=== PATIENT | female | born 1955 ===

== ENCOUNTER → 2023-05-31 | Outpatient (CLI) | payer MEDICARE ==
[~2023-05-31] MED LIST: ESTR1 PO; HYDACE5 PO; IBUP800 PO
== END | disposition home or self-care (01) ==
LOC: LAB 08:30 → LAB SHORT 08:30
DX: L08.9 Local infection of the skin and subcutaneous tissue, unspecified (principal)
CPT/HCPCS: 87070; 87075; 87205